=== PATIENT | female | born 1945 | race Caucasian/White ===

== ENCOUNTER 2018-04-21 12:40 | Inpatient (IN) | payer OTHER, SELFPAY ==
[2018-04-21] MEDS ORDERED: ONDANSETRON 4 MG/2 ML VIAL ONE (13:58)
[2018-04-21] MEDS ORDERED: MORPHINE 4 MG/ML SYR ONE (13:58)
[2018-04-21] MEDS ORDERED: NA CHLORIDE 0.9% 1,000 ML ONE ×2 (13:58→16:17)
--- NOTE | 2018-04-21 14:07 | RAD REPORT ---
EXAM DESCRIPTION: CT - Abdomen Pelvis Wo Contrast - 04/21/2018 1:33 pm CLINICAL HISTORY: Abdominal pain, patient provided history of liver an uterine cancer COMPARISON: None. TECHNIQUE: Axial [address] imaging of the abdomen and pelvis was performed without IV contrast. No IV contrast was given because of allergy, abnormal renal function, patient refusal or physician re quest. No oral contrast administered. All CT scans are performed using dose optimization technique as appropriate and may include automated exposure control or mA/KV adjustment according to patient size. FINDINGS: No suspicious findings in the lung bases. No pericardial thickening or effusion. In the midline and right side upper abdomen there is an 8 x 7 x 7 centimeter lobulated soft tissue ma ss. Superior margin abuts the left lobe of the liver. In the midportion the mass displaces the pancre as anteriorly. Posterior margin of the mass abuts the aorta and IVC. Surgical clips are seen along th e superior margin of the mass. Within the liver parenchyma no clearly defined mass on noncontrast kurt ging. Pneumobilia is present. No gallbladder is identifiable. No focal splenic abnormality. The head and adjacent body of the pancreas are indistinguishable from the mass due to the isodensity of the 2 structures. No hydronephrosis or suspicious renal mass. Patient has a large 7 centimeter lower pole right renal c yst. Mostly contracted urinary bladder shows no suspicious finding. Uterus is absent. Ovaries are abs ent or atrophic. No adnexal mass. No significant adrenal finding. Isodense renal masses and pyeloneph ritis cannot be excluded in the absence of IV contrast. No acute gastric finding. Stomach assessment is limited in the absence of oral and IV contrast. No di lated large or small bowel loops. There is a large stool volume throughout the colon. A primary or ac tive colon process not suspected. No free air, free fluid or inflammatory stranding. No omental thickening. No hernia identified. Miryam ent has small periaortic/ pericaval lymph nodes in the upper abdomen. Disc and bony degenerative changes are present. IMPRESSION: No bowel obstruction, free air or surgically emergent finding. There is a large 8 centimeter solid mass of the midline and right upper abdomen with adjacent lymphad enopathy. Available history indicates liver cancer and uterine cancer. No prior imaging available to determine if this mass is stable, enlarging or improving. Large stool volume in the colon. No acute GI process. Large 7 centimeter lower pole right renal cyst. Assessment is limited in the absence of oral and IV contrast. Full assessment is limited is the absence of IV contrast.
--- NOTE | 2018-04-21 14:09 | RAD REPORT ---
EXAM DESCRIPTION: RAD - Chest Single View - 04/21/2018 1:35 pm CLINICAL HISTORY: Abdominal pain COMPARISON: None. TECHNIQUE: AP portable chest image was obtained 1329 hours . FINDINGS: Lungs are clear. Heart and vasculature are normal. No measurable pleural effusion and no p neumothorax. No acute bony abnormality seen. No acute aortic findings suspected. IMPRESSION: No acute cardiopulmonary process.
[2018-04-21 14:29] LABS: Absolute Lymphocytes (CBC) 0.8 K/uL (0.7-4.9); Absolute Monocytes 1.1 K/uL (0.1-1.3); Absolute Neutrophil 13.3 K/uL (1.8-8.0); Basophils % 0.1 % (0-1.3); Hematocrit 48.3 % (36.0-45.0); Lymphocytes % 5.2 % (15.3-44.8); MPV 8.2 fL (7.6-11.3); Monocytes % 7.1 % (3.3-12.3); RBC Red Blood Cell Count 6.26 M/uL (3.86-4.86)
[2018-04-21 14:30] LABS: Protime INR 1.08
[2018-04-21 14:43] LABS: Albumin 4.3 g/dL (3.4-5.0); Bilirubin Direct 0.2 mg/dL (0-0.2); Bilirubin Total 0.8 mg/dL (0.2-1.0); Potassium 3.7 mmol/L (3.5-5.1); Protein, Total 8.5 g/dL (6.4-8.2); Troponin (Emerg Dept Use Only) 0.14 ng/mL (0.0-0.045)
[2018-04-21] MEDS ORDERED: ASPIRIN 81 MG CHEWABLE TABLET ONE (15:12)
[2018-04-21 15:21] LABS: Anisocytosis 1+; Blood Morphology Comment NOTED (NOT SEEN); Platelet Estimate ADEQ; Urine White Blood Cell Casts OK
--- NOTE | 2018-04-21 15:35 | RAD REPORT ---
EXAM DESCRIPTION: CT - Chest For Pe Angio - 04/21/2018 3:22 pm CLINICAL HISTORY: Chest pain, shortness of breath, abnormal cardiac enzymes COMPARISON: None. TECHNIQUE: Dynamically enhanced 3 mm thick images of the chest were obtained during administration o f approximately 150mL Isovue 370 IV contrast. Coronal and oblique MIP reconstruction images were gene rated and reviewed. Exam utilizes a protocol to evaluate the pulmonary arterial tree. All CT scans are performed using dose optimization technique as appropriate and may include automated exposure control or mA/KV adjustment according to patient size. FINDINGS: No pulmonary emboli are identified. The aorta as imaged shows no acute or suspicious finding. Trace amount of pericardial effusion seen. No infiltrate or mass in the lung parenchyma. No pleural effusion or pleural thickening. No mediastinal or hilar suspicious masses. No chest wall masses or abnormal axillary lymphadenopathy. IMPRESSION: No pulmonary emboli identified. No other significant or suspicious findings.
[2018-04-21] MEDS ORDERED: LABETALOL 20 MG/4ML SYRINGE IV ONE (15:44)
--- NOTE | 2018-04-21 15:57 | ER ---
Nurse's Notes [facility] Name: Heidy Shelton Age: 73 yrs Sex: Female : 1945 Arrival Date: 04/21/2018 Time: 12:43 Bed 19 Private MD: None, None Diagnosis: Hypertensive heart disease;Non-ST elevation (NSTEMI) myocardial infarction Presentation: 04/21 12:45 Presenting complaint: Patient states: i started having stomach pain yesterday, +n, tw2 vomited all night. Transition of care: patient was not received from another setting of care. Onset of symptoms was April 21, 2018. Risk Assessment: Do you want to hurt yourself or someone else? Patient reports no desire to harm self or others. Initial Sepsis Screen: Does the patient meet any 2 criteria? No. Patient's initial sepsis screen is negative. Does the patient have a suspected source of infection? No. Patient's initial sepsis screen is negative. Care prior to arrival: None. 12:45 Method Of Arrival: Wheelchair tw2 12:45 Acuity: ISABELLA 3 tw2 Historical: - Allergies: 12:48 No Known Allergies; tw2 - Home Meds: 12:48 chemo - 1 mo ago [Active]; tw2 - PMHx: 12:48 Cancer; cancer of liver, uterine, and cyst; tw2 - Immunization history:: Adult Immunizations. - Social history:: Smoking status: Patient/guardian denies using alcohol, street drugs, The patient lives with family. - Ebola Screening: : Patient denies travel to an Ebola-affected area in the 21 days before illness onset. - Family history:: not pertinent. Screenin:00 Abuse screen: Denies threats or abuse. Denies injuries from another. Nutritional bp screening: No deficits noted. Tuberculosis screening: No symptoms or risk factors identified. Fall Risk None identified. Assessment: 12:45 General: Appears distressed, uncomfortable, slender, Behavior is calm, cooperative, bp appropriate for age. Pain: Complains of pain in abdomen. Neuro: Level of Consciousness is awake, alert, obeys commands, lethargic, Oriented to person, place, time, situation, Appropriate for age. Cardiovascular: No deficits noted. Respiratory: Airway is patent Respiratory effort is even, unlabored, Respiratory pattern is regular, symmetrical. GI: Reports lower abdominal pain. : No signs and/or symptoms were reported regarding the genitourinary system. EENT: No deficits noted. Derm: No signs and/or symptoms reported regarding the dermatologic system. Musculoskeletal: Circulation, motion, and sensation intact. Range of motion: intact in all extremities. 14:04 Reassessment: ALL CURRENT ORDERS COMPLETED, RESULTS PENDING. bp Vital Signs: 12:45 BP 153 / 114; Pulse 118; Resp 19; Temp 97.2(TE); Pulse Ox 97% on R/A; Weight 56.7 kg tw2 (R); Pain 10/10; 14:03 BP 216 / 114; Pulse 100; Resp 20; Pulse Ox 94% ; bp 14:41 BP 221 / 82; Pulse 100; Resp 19; Pulse Ox 96% on R/A; ca1 15:00 BP 229 / 81; Pulse 99; Resp 22; Pulse Ox 95% ; bp 16:36 BP 183 / 79; Pulse 76; Resp 21; Temp 98.2(O); Pulse Ox 98% on R/A; mh5 ED Course: 12:43 Patient arrived in ED. mr 12:43 None, None is Private Physician. mr 12:45 Triage completed. tw2 12:48 Arm band placed on. tw2 12:50 Kamran Gonzalez, TYLER is Primary Nurse. bp 13:05 Maki Awan MD is Attending Physician. ma2 13:32 CT completed. Patient tolerated procedure well. Patient moved to CT via stretcher. Patient moved back from CT. 13:34 CT Abd/Pelvis - Without Cont In Process Unspecified. EDMS 13:34 X-ray completed. Portable x-ray completed in exam room. Patient tolerated procedure mh1 well. 13:36 XRAY Chest (1 view) In Process Unspecified. EDMS 13:59 Inserted saline lock: 20 gauge in right antecubital area, using aseptic technique. bp Blood collected. 14:00 Patient has correct armband on for positive identification. Placed in gown. Bed in low bp position. Call light in reach. Side rails up X2. Adult w/ patient. 15:[address] via stretcher. nj 15:22 CT completed. Patient tolerated procedure well. Patient moved back from CT. nj 15:23 CT Chest For PE Angio In Process Unspecified. EDMS 15:56 Xochilt Moreau MD is Hospitalizing Provider. ma2 17:14 No provider procedures requiring assistance completed. Patient admitted, IV remains in bp place. Administered Medications: 14:00 Drug: NS 0.9% 1000 ml Route: IV; Rate: 1 bolus; Site: right antecubital; bp 15:00 Follow up: IV Status: Completed infusion bp 14:00 Drug: morphine 4 mg Route: IVP; Site: right antecubital; bp 16:04 Follow up: Response: Pain is decreased bp 14:01 Drug: Zofran 4 mg Route: IVP; Site: right antecubital; bp 15:00 Follow up: Response: Nausea is decreased bp 15:03 Drug: Aspirin Chewable Tablet 324 mg Route: PO; ca1 16:05 Follow up: Response: No adverse reaction bp 15:38 Drug: Labetalol 10 mg Route: IVP; Site: right antecubital; bp 16:05 Follow up: Response: No adverse reaction bp 16:00 Drug: Lovenox 80 mg Route: Sub-Q; Site: right lower abdomen; ca1 17:28 Follow up: Response: No adverse reaction bp 16:07 Drug: NS 0.9% 1000 ml Route: IV; Rate: 1 bolus; Site: right antecubital; ca1 17:28 Follow up: IV Status: Completed infusion bp Outcome: 15:57 Decision to Hospitalize by Provider. ma2 17:15 Condition: stable bp 17:15 Instructed on the need for admit. 17:28 Admitted to Tele accompanied by tech, family with patient, via wheelchair, room 406, bp with oxygen, with chart, Report called to SELMA 18:04 Patient left the ED. bp Signatures: Dispatcher [employer] EDCO LandQuita mr CarterFarzaneh mh1 Jazmin Mayo Tara, RN RN 2 Lobo Menon Maria 5 Kamran Gonzalez RN RN bp Mkai Awan MD MD ma2 Heidy Ellis RN RN ca1
--- NOTE | 2018-04-21 15:58 | EDPHYS ---
Physician Documentation [facility] Name: Heidy Shelton Age: 73 yrs Sex: Female : 1945 Arrival Date: 04/21/2018 Time: 12:43 Bed 19 Private MD: None, None ED Physician Maki Awan HPI: 04/21 13:18 This 73 yrs old Female presents to ER via Wheelchair with complaints of High ma2 Blood Pressure. 13:18 Onset: The symptoms/episode began/occurred gradually, 3 day(s) ago. Associated signs ma2 and symptoms: Pertinent positives: nausea, vomiting, abd pain, Pertinent negatives: dyspnea, lightheadedness, visual changes. The patient has experienced similar episodes in the past. here with dehydration no po intake and vomiting hx of liver ca w mets does not get any treatment or medicines . Historical: - Allergies: 12:48 No Known Allergies; tw2 - Home Meds: 12:48 chemo - 1 mo ago [Active]; tw2 - PMHx: 12:48 Cancer; cancer of liver, uterine, and cyst; tw2 - Immunization history:: Adult Immunizations. - Social history:: Smoking status: Patient/guardian denies using alcohol, street drugs, The patient lives with family. - Ebola Screening: : Patient denies travel to an Ebola-affected area in the 21 days before illness onset. - Family history:: not pertinent. ROS: 13:18 Constitutional: Negative for fever, chills, and weight loss. ma2 13:18 Abdomen/GI: Positive for abdominal pain, nausea, vomiting, Negative for constipation, abdominal distension, anorexia, rectal pain, flatulence. 13:18 All other systems are negative. Exam: 13:18 Constitutional: This is a well developed, well nourished patient who is awake, alert, ma2 and in no acute distress. 13:18 ENT: Nares patent. No nasal discharge, no septal abnormalities noted. Tympanic membranes are normal and external auditory canals are clear. Oropharynx with no redness, swelling, or masses, exudates, or evidence of obstruction, uvula midline. Mucous membranes moist. Neck: Trachea midline, no thyromegaly or masses palpated, and no cervical lymphadenopathy. Supple, full range of motion without nuchal rigidity, or vertebral point tenderness. No Meningismus. Chest/axilla: Normal chest wall appearance and motion. Nontender with no deformity. No lesions are appreciated. Cardiovascular: Regular rate and rhythm with a normal S1 and S2. No gallops, murmurs, or rubs. Normal PMI, no JVD. No pulse deficits. Respiratory: Lungs have equal breath sounds bilaterally, clear to auscultation and percussion. No rales, rhonchi or wheezes noted. No increased work of breathing, no retractions or nasal flaring. MS/ Extremity: Pulses equal, no cyanosis. Neurovascular intact. Full, normal range of motion. Neuro: Awake and alert, GCS 15, oriented to person, place, time, and situation. Cranial nerves II-XII grossly intact. Motor strength 5/5 in all extremities. Sensory grossly intact. Cerebellar exam normal. Normal gait. 13:18 Abdomen/GI: Inspection: abdomen appears normal, Palpation: moderate abdominal tenderness, in all quadrants. Vital Signs: 12:45 BP 153 / 114; Pulse 118; Resp 19; Temp 97.2(TE); Pulse Ox 97% on R/A; Weight 56.7 kg tw2 (R); Pain 10/10; 14:03 BP 216 / 114; Pulse 100; Resp 20; Pulse Ox 94% ; bp 14:41 BP 221 / 82; Pulse 100; Resp 19; Pulse Ox 96% on R/A; ca1 15:00 BP 229 / 81; Pulse 99; Resp 22; Pulse Ox 95% ; bp 16:36 BP 183 / 79; Pulse 76; Resp 21; Temp 98.2(O); Pulse Ox 98% on R/A; mh5 MDM: 13:05 Patient medically screened. ms2 13:18 Differential diagnosis: dehydration, vomiting decrease po intake. ma2 15:48 Data reviewed: vital signs, nurses notes. Counseling: I had a detailed discussion with ma2 the patient and/or guardian regarding: the historical points, exam findings, and any diagnostic results supporting the discharge/admit diagnosis, the presence of at least one elevated blood pressure reading (>120/80) during this emergency department visit, the need for further work-up and treatment in the hospital. ED course: symptoms improved however has elevated BP with elevated troponin no symptoms at this time will admit for hypertensive emergency accepted by dr. Moreau . 04/21 13:18 Order name: Basic Metabolic Panel; Complete Time: 14:54 04/21 13:18 Order name: CBC with Diff; Complete Time: 15:44 04/21 13:18 Order name: Creatinine for Radiology; Complete Time: 14:41 04/21 13:18 Order name: Hepatic Function; Complete Time: 14:54 04/21 13:18 Order name: Lipase; Complete Time: 14:54 04/21 13:18 Order name: Magnesium; Complete Time: 14:54 04/21 13:18 Order name: NT PRO-BNP; Complete Time: 14:54 04/21 13:18 Order name: PT-INR; Complete Time: 14:54 04/21 13:18 Order name: Troponin (emerg Dept Use Only); Complete Time: 14:54 04/21 13:18 Order name: XRAY Chest (1 view); Complete Time: 14:41 04/21 13:18 Order name: CT Abd/Pelvis - Without Cont; Complete Time: 14:41 04/21 14:58 Order name: CT Chest For PE Angio; Complete Time: 15:44 04/21 15:21 Order name: CBC Smear Scan; Complete Time: 15:44 [facility] 04/21 13:18 Order name: IV Saline Lock; Complete Time: 14:01 04/21 13:18 Order name: Labs collected and sent; Complete Time: 14:01 04/21 13:18 Order name: EKG; Complete Time: 13:19 04/21 13:18 Order name: Cardiac monitoring; Complete Time: 13:31 04/21 13:18 Order name: EKG - Nurse/Tech; Complete Time: 13:04/21 13:18 Order name: O2 Per Protocol; Complete Time: 13:04/21 13:18 Order name: O2 Sat Monitoring; Complete Time: 13: Administered Medications: 14:00 Drug: NS 0.9% 1000 ml Route: IV; Rate: 1 bolus; Site: right antecubital; bp 15:00 Follow up: IV Status: Completed infusion bp 14:00 Drug: morphine 4 mg Route: IVP; Site: right antecubital; bp 16:04 Follow up: Response: Pain is decreased bp 14:01 Drug: Zofran 4 mg Route: IVP; Site: right antecubital; bp 15:00 Follow up: Response: Nausea is decreased bp 15:03 Drug: Aspirin Chewable Tablet 324 mg Route: PO; ca1 16:05 Follow up: Response: No adverse reaction bp 15:38 Drug: Labetalol 10 mg Route: IVP; Site: right antecubital; bp 16:05 Follow up: Response: No adverse reaction bp 16:00 Drug: Lovenox 80 mg Route: Sub-Q; Site: right lower abdomen; ca1 17:28 Follow up: Response: No adverse reaction bp 16:07 Drug: NS 0.9% 1000 ml Route: IV; Rate: 1 bolus; Site: right antecubital; ca1 17:28 Follow up: IV Status: Completed infusion bp Disposition: 04/21/18 15:57 Hospitalization ordered by Xochilt Moreau for Inpatient Admission. Preliminary diagnosis are Hypertensive heart disease, Non-ST elevation (NSTEMI) myocardial infarction. - Bed requested for Telemetry/MedSurg (Inpatient). - Status is Inpatient Admission. bp - Condition is Stable. - Problem is new. - Symptoms are unchanged. UTI on Admission? No Signatures: Dispatcher [employer] EDMS Angela Silva Tara, RN RN tw2 Kamran Gonzalez RN RN bp Maki Awan MD MD ma2 Heidy Ellis RN RN ca1 Corrections: (The following items were deleted from the chart) 17:02 15:57 Hospitalization Ordered by Xochilt Moreau MD for Inpatient Admission. Preliminary bd diagnosis is Hypertensive heart disease; Non-ST elevation (NSTEMI) myocardial infarction. Bed requested for Telemetry/MedSurg (Inpatient). Status is Inpatient Admission. Condition is Stable. Problem is new. Symptoms are unchanged. UTI on Admission? No. ma2 18:04 17:02 04/21/2018 15:57 Hospitalization Ordered by Xochilt Moreau MD for Inpatient bp Admission. Preliminary diagnosis is Hypertensive heart disease; Non-ST elevation (NSTEMI) myocardial infarction. Bed requested for Telemetry/MedSurg (Inpatient). Status is Inpatient Admission. Condition is Stable. Problem is new. Symptoms are unchanged. UTI on Admission? No. bd
[2018-04-21] MEDS ORDERED: ENOXAPARIN 80 MG/0.8 ML SQ ONE (16:18)
--- NOTE | 2018-04-21 17:07 | EKG ---
Test Date: 2018-04-21 Test Time: 13:06:08 Burrer Hand: [place] MEASUREMENT RESULTS: Intervals: Rate: 113 DC: 186 QRSD: 82 QT: 328 QTc: 449 [place]: P: 74 DC: 186 QRS: 51 T: 81 INTERPRETIVE STATEMENTS: Sinus tachycardia Right atrial enlargement Nonspecific ST abnormality Abnormal ECG No previous ECG available for comparison Electronically Signed On 04-21-18 17:06:46 [employer]ANT AND MAINTENANCE TECHNICIAN by Brock Cedeno
[2018-04-21] MEDS ORDERED: ACETAMINOPHEN 500 MG TAB PO PRN (18:08)
[2018-04-21] MEDS ORDERED: PNEUMOCOCCAL VACCINE 0.5 ML IMVAC ONE (20:00)
[2018-04-21] MEDS ORDERED: INFLUENZA VACCINE (for 3y+) 0.5 ML DOSE IMVAC ONE (20:00)
[2018-04-21] MEDS ORDERED: AMLODIPINE 5 MG TAB PO ONE (20:17)
[2018-04-21] MEDS ORDERED: METOPROLOL TAR 50 MG TAB PO ONE (20:17)
[2018-04-21] MEDS: ONDANSETRON 4 MG/2 ML VIAL IV PRN (20:43)
[2018-04-21] MEDS: NA CHLORIDE 0.9% 1,000 ML IV SCH (20:49)
[2018-04-21] MEDS: HYDRALAZINE HCL 20 MG/ML VIAL IV PRN (23:06)
[2018-04-22 04:15] LABS: Absolute Lymphocytes (CBC) 1.5 K/uL (0.7-4.9); Absolute Monocytes 1.4 K/uL (0.1-1.3); Basophils % 0.2 % (0-1.3); Hematocrit 45.9 % (36.0-45.0); Lymphocytes % 8.5 % (15.3-44.8); MPV 8.1 fL (7.6-11.3); Monocytes % 7.9 % (3.3-12.3); RBC Red Blood Cell Count 5.99 M/uL (3.86-4.86)
[2018-04-22 04:39] LABS: Albumin 3.8 g/dL (3.4-5.0); Bilirubin Total 0.6 mg/dL (0.2-1.0); Potassium 3.5 mmol/L (3.5-5.1); Protein, Total 7.5 g/dL (6.4-8.2)
[2018-04-22 04:45] LABS: Urine Appearance CLEAR; Urine Bilirubin NEGATIVE (NEG); Urine Blood TRACE (NEG); Urine Color YELLOW; Urine Glucose TRACE (NEG); Urine Protein 3+ (NEG); Urine Specific Gravity >=1.030 (1.005-1.030); Urine pH 5.5 (5.0-7.0)
[2018-04-22 04:46] LABS: Urine Microscopic Reflex ORDER UMIC
[2018-04-22] MEDS: MORPHINE 4 MG/ML SYR IV PRN ×3 (05:13→15:21)
[2018-04-22 05:34] LABS: Urine Bacteria <20 /HPF (<20); Urine Culture Reflex Order NOT NEEDED; Urine RBC <5 /HPF (NONE SEEN)
[2018-04-22] MEDS: METOPROLOL TAR 25 MG TAB PO SCH ×2 (05:59→16:47)
[2018-04-22] MEDS ORDERED: POTASSIUM CL SA 10 MEQ TAB PO ONE (08:00)
[2018-04-22] MEDS: HYDRALAZINE HCL 20 MG/ML VIAL IV PRN ×2 (09:09→21:09)
[2018-04-22] MEDS: AMLODIPINE 10 MG TAB PO SCH (09:10)
[2018-04-22] MEDS: NA CHLORIDE 0.9% 1,000 ML IV SCH ×2 (09:11→23:40)
--- NOTE | 2018-04-22 09:23 | P.HP ---
Certification for Inpatient Patient admitted to: Inpatient With expected LOS: >2 Midnights Patient will require the following post-hospital care: None Practitioner: I am a practitioner with admitting privileges, knowledge of patient current condition, hospital course, and medical plan of care. Services: Services provided to patient in accordance with Admission requirements found in Title 42 Section 412.3 of the Code of Federal Regulations Patient History Date of Service: 04/21/18 Reason for admission: Hypertensive emergency History of Present Illness: Patient is a 73-year-old female who was admitted to the hospital with chest pain.: Patient has been having abdominal pain as well. Patient had intractable nausea and vomiting. Patient is blood pressure is also been out of control. Patient came to the hospital for further evaluation. In the ER blood pressure was 200/100. Patient's troponin was mildly elevated. Patient was diagnosed with abdominal mass which is a malignancy. The patient has metastatic disease. Patient was admitted to the hospital for further evaluation. 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 -: hysterectomy -: tumor removal- hidden in the bile duct about 6 yrs ago - Family History Father Family History: Reviewed- Non-Contributory - Social History Smoking Status: Never smoker Alcohol use: No CD- Drugs: No Caffeine use: Yes Place of Residence: Home Review of Systems 10-point ROS is otherwise unremarkable Physical Examination - Vital Signs Temperature: 97.3 F Blood Pressure: 194/97 Pulse: 80 Respirations: 16 Pulse Ox (%): 96 - Physical Exam General: Alert, In no apparent distress, Oriented x3 HEENT: Atraumatic, PERRLA, Mucous membr. moist/pink, EOMI, Sclerae nonicteric Neck: Supple, 2+ carotid pulse no bruit, No LAD, Without JVD or thyroid abnormality Respiratory: Clear to auscultation bilaterally, Normal air movement Cardiovascular: Regular rate/rhythm, Normal S1 S2, No murmurs Gastrointestinal: Normal bowel sounds, No tenderness Musculoskeletal: No tenderness Integumentary: No rashes Neurological: Normal gait, Normal speech, Normal strength at 5/5 x4 extr, Normal tone, Normal affect Lymphatics: No axilla or inguinal lymphadenopathy - Studies Laboratory Data (last 24 hrs) 04/21/18 14:10: PT 12.7 H, INR 1.08 04/21/18 14:10: Creatinine 1.28 04/21/18 14:10: WBC 15.2 H, Hgb 16.5 H, Hct 48.3 H, Plt Count 343 04/21/18 14:10: Sodium 130 L, Potassium 3.7, BUN 20 H, Creatinine 1.30, Glucose 258 H, Magnesium 2.0, Total Bilirubin 0.8, AST 13 L, ALT 18, Alkaline Phosphatase 132 H, Lipase 95 Assessment & Plan - Problems (Diagnosis) (1) Abdominal mass Current Visit: Yes Status: Acute (2) Metastatic disease Current Visit: Yes Status: Acute (3) Hypertensive emergency Current Visit: Yes Status: Acute (4) Elevated troponin Current Visit: Yes Status: Acute - Plan Plan: 1. strict blood pressure control 2. monitor troponins 3. Conservative measures 4. Gentle hydration 5. Discuss with family regarding hospice care 6. GI and DVT prophylaxis Discharge Plan: Home Plan to discharge in: 48 Hours - Advance Directives Does patient have a Living Will: No Does patient have a Durable POA for Healthcare: No - Code Status/Comfort Care Code Status Assessed: Yes Code Status: Full Code Critical Care: No Time Spent Managing PTS Care (In Minutes): 45
[2018-04-22] MEDS: ONDANSETRON 4 MG/2 ML VIAL IV PRN ×2 (09:59→22:25)
[2018-04-22 12:00] LABS: CKMB Creatine Kinase MB < 1.0 ng/mL (0.3-3.6); Creatine Phosphokinase 26 U/L (26-192)
[2018-04-22] MEDS: HYDROCODONE/APAP 5/325 MG TAB PO PRN ×2 (13:11→21:09)
--- NOTE | 2018-04-22 16:17 | P.PN ---
Subjective Date of Service: 04/22/18 Chief Complaint: Hypertensive emergency Patient seen and examined at bedside. Friends at bedside. Chart reviewed and case discussed with nursing staff. Physical Examination - Vital Signs Temperature: 98.8 F Blood Pressure: 157/82 Pulse: 96 Respirations: 18 Pulse Ox (%): 96 - Physical Exam General: Cachectic, Moderate distress, Other (Groggy; elderly, ill-appearing) HEENT: Atraumatic, PERRLA, EOMI Neck: Supple, JVD not distended Respiratory: Clear to auscultation bilaterally, Normal air movement Cardiovascular: Regular rate/rhythm, Normal S1 S2 Gastrointestinal: Normal bowel sounds, Tenderness Musculoskeletal: No tenderness Integumentary: No rashes Neurological: Normal speech, Normal tone, Normal affect Lymphatics: No axilla or inguinal lymphadenopathy Assessment And Plan - Plan - Problems (Diagnosis) (1) Abdominal mass (2) Metastatic disease (3) Hypertensive emergency (4) Elevated troponin 1. strict blood pressure control 2. monitor troponins 3. Conservative measures 4. Gentle hydration 5. Discuss with family regarding hospice care. Attempts to call son, unable to reach. Will try again 6. GI and DVT prophylaxis
[2018-04-22] MEDS: ENOXAPARIN 40 MG/0.4 ML SQ SCH (16:43)
[2018-04-23] MEDS: HYDROCODONE/APAP 5/325 MG TAB PO PRN (01:32)
[2018-04-23] MEDS: MORPHINE 4 MG/ML SYR IV PRN (04:54)
[2018-04-23] MEDS: METOPROLOL TAR 25 MG TAB PO SCH ×2 (06:00→17:34)
[2018-04-23] MEDS: TRAMADOL HCL 50 MG TAB PO PRN ×2 (08:33→15:34)
[2018-04-23] MEDS: ONDANSETRON 4 MG/2 ML VIAL IV PRN ×2 (08:33→15:44)
[2018-04-23] MEDS: AMLODIPINE 10 MG TAB PO SCH (08:34)
[2018-04-23] MEDS: HYDRALAZINE HCL 20 MG/ML VIAL IV PRN ×2 (08:34→15:43)
[2018-04-23] MEDS: NA CHLORIDE 0.9% 1,000 ML IV SCH (15:35)
[2018-04-23] MEDS ORDERED: POTASSIUM CL SA 10 MEQ TAB PO SCH (15:56)
--- NOTE | 2018-04-23 16:06 | P.PN ---
Subjective Date of Service: 04/23/18 Chief Complaint: Hypertensive emergency Patient seen and examined at bedside. Friends at bedside. Chart reviewed and case discussed with nursing staff. Patient very sleepy, unable to really discuss. Arousable but not very coherent. She did receive morphine and Sixes recent HPI: patient with a history of uterine cancer requiring hysterectomy over 8 years ago and no chemo required at that time. 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 Son states that there was a rare type and she did not require chemo at that time either. Approximately 10 months ago she was diagnosed with another type of cancer, son is not sure what type of cancer but it is in the GI tract somewhere in the abdomen. At that time, she was told that it is a very slow-growing tumor though unoperable. The son is not sure why it was not operable. There was a procedure playing out to possibly showing the tumor with the physicians that she is following up in [place]. She was started on injectable chemo once a month then was transitioned to oral chemo. He but according to the son, patient moved near [place], was unable to get her chemo prescription filled and for the past 1-2 months has not been getting any chemo medications. There was a repeat CT done in December 2017, which showed that there is no evidence of any growth of the tumor from prior. 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 Review of Systems 10-point ROS is otherwise unremarkable Physical Examination - Vital Signs Temperature: 98.3 F Blood Pressure: 164/76 Pulse: 108 Respirations: 20 Pulse Ox (%): 95 - Physical Exam General: Moderate distress, Other (groggy/sleepy; elderly and ill-appearing) Respiratory: Clear to auscultation bilaterally Cardiovascular: No edema, Regular rate/rhythm Gastrointestinal: Tenderness Musculoskeletal: No clubbing Assessment And Plan - Plan - Problems (Diagnosis) (1) Abdominal mass (2) Metastatic disease (3) Hypertensive emergency (4) Elevated troponin 1. strict blood pressure control 2. Pain management - tramadol. Discontinue morphine and [place] at this time 3. Conservative measures 4. Gentle hydration 5. Discuss with family regarding hospice care. Son is not sure of what hospice care is. He is located at [facility] and will not be able to travel down here. We will discuss briefly via telephone. 6. 7. Per son, patient does not have a medical power of health spa manager and is unsure of the code status at this time. He will discuss with his and let us know. Patient is not really able to tell us her wishes at this time. GI and DVT prophylaxis Time Spent Managing PTS Care (In Minutes): 45
[2018-04-23] MEDS: ENOXAPARIN 40 MG/0.4 ML SQ SCH (16:42)
[2018-04-23] MEDS ORDERED: KETOROLAC 30 MG/ML INJ IV SCH (18:30)
[2018-04-24] MEDS: NA CHLORIDE 0.9% 1,000 ML IV SCH ×2 (02:53→15:40)
[2018-04-24] MEDS: HYDRALAZINE HCL 20 MG/ML VIAL IV PRN (02:54)
[2018-04-24] MEDS: METOPROLOL TAR 25 MG TAB PO SCH ×2 (05:32→18:00)
[2018-04-24] MEDS: AMLODIPINE 10 MG TAB PO SCH (08:28)
[2018-04-24] MEDS ORDERED: KETOROLAC 30 MG/ML INJ IV ONE (09:55)
--- NOTE | 2018-04-24 11:19 | P.PN ---
Subjective Date of Service: 04/24/18 Chief Complaint: Hypertensive emergency Patient seen and examined at bedside. Friends at bedside. Chart reviewed and case discussed with nursing staff. Patient more awake this morning. Does not look like she is in any acute distress but complaining of pain that is not improved since admission. HPI: patient with a history of uterine cancer requiring hysterectomy over 8 years ago and no chemo required at that time. 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 Son states that there was a rare type and she did not require chemo at that time either. Approximately 10 months ago she was diagnosed with another type of cancer, son is not sure what type of cancer but it is in the GI tract somewhere in the abdomen. At that time, she was told that it is a very slow-growing tumor though unoperable. The son is not sure why it was not operable. There was a procedure playing out to possibly showing the tumor with the physicians that she is following up in [place]. She was started on injectable chemo once a month then was transitioned to oral chemo. He but according to the son, patient moved near [place], was unable to get her chemo prescription filled and for the past 1-2 months has not been getting any chemo medications. There was a repeat CT done in December 2017, which showed that there is no evidence of any growth of the tumor from prior. 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 Review of Systems 10-point ROS is otherwise unremarkable Physical Examination - Vital Signs Temperature: 97.9 F Blood Pressure: 155/78 Pulse: 80 Respirations: 17 Pulse Ox (%): 94 - Physical Exam General: Alert, In no apparent distress, Oriented x3 HEENT: Atraumatic, PERRLA, EOMI Neck: Supple, JVD not distended Respiratory: Clear to auscultation bilaterally, Normal air movement Cardiovascular: Regular rate/rhythm, Normal S1 S2 Gastrointestinal: Normal bowel sounds, Tenderness Musculoskeletal: No tenderness Integumentary: No rashes Neurological: Normal speech, Normal tone, Normal affect Lymphatics: No axilla or inguinal lymphadenopathy Assessment And Plan - Plan - Problems (Diagnosis) (1) Abdominal mass (2) Metastatic disease (3) Hypertensive emergency (4) Elevated troponin 1. strict blood pressure control 2. Pain management - Patient on tramadol, [place] and morphine. None of this has been helping her pain, per patient. She remains to be in no distress but continues to complain of pain. Morphine and [place] seems to make the patient very confused and sleepy. Trial of IV Toradol to see if this will help. 3. Gentle hydration 4. Discuss with family regarding hospice care. Discussed extensively with sister and mother at bedside yesterday. Family is not sure of how they want to proceed. They were unable to provide details of prior procedure/cancer. There on short of previously had cancer in liver, metastasis from elsewhere? There very indecisive and are unsure of what to do. Per sister, the son lives in [facility] and is supposed be leaving out of the country. Discussed with family that they will need to make a plan for moving forward as patient's pain control has been very difficult to manage. It seems that they are under the impression that the patient will return back to baseline with holistic medicine. Sister stated that she will speak to patient's son to see if he can come down here for further discussion. Will continue to follow up with family. 5. Per son, patient does not have a medical power of deputy commonwealth's attorney and is unsure of the code status at this time. He will discuss with his and let us know. Patient is not really able to tell us her wishes at this time. GI and DVT prophylaxis
[2018-04-24] MEDS: ENOXAPARIN 40 MG/0.4 ML SQ SCH (17:00)
[2018-04-24] MEDS: FENTANYL 25 MCG/PATCH TD SCH (21:09)
[2018-04-25] MEDS: TRAMADOL HCL 50 MG TAB PO PRN ×2 (00:56→11:42)
[2018-04-25] MEDS: HYDRALAZINE HCL 20 MG/ML VIAL IV PRN (00:56)
[2018-04-25] MEDS: MORPHINE 4 MG/ML SYR IV PRN ×2 (04:31→14:58)
[2018-04-25] MEDS: NA CHLORIDE 0.9% 1,000 ML IV SCH ×2 (04:31→17:32)
[2018-04-25] MEDS: METOPROLOL TAR 25 MG TAB PO SCH ×2 (05:09→17:32)
[2018-04-25] MEDS: ONDANSETRON 4 MG/2 ML VIAL IV PRN ×2 (05:21→14:58)
[2018-04-25] MEDS: hydroCHLOROthiazide 12.5 MG CAP PO SCH (08:41)
[2018-04-25] MEDS: AMLODIPINE 10 MG TAB PO SCH (08:41)
[2018-04-25] MEDS: ENOXAPARIN 40 MG/0.4 ML SQ SCH (17:32)
--- NOTE | 2018-04-25 17:56 | P.PN ---
Subjective Date of Service: 04/25/18 Chief Complaint: Hypertensive emergency Subjective: Improving Patient seen and examined at bedside. Friends at bedside. Chart reviewed and case discussed with nursing staff. Patient more awake this morning. Reports that she had a good night, pain is a little better than yesterday. HPI: patient with a history of uterine cancer requiring hysterectomy over 8 years ago and no chemo required at that time. 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 Son states that there was a rare type and she did not require chemo at that time either. Approximately 10 months ago she was diagnosed with another type of cancer, son is not sure what type of cancer but it is in the GI tract somewhere in the abdomen. At that time, she was told that it is a very slow-growing tumor though unoperable. The son is not sure why it was not operable. There was a procedure playing out to possibly showing the tumor with the physicians that she is following up in [place]. She was started on injectable chemo once a month then was transitioned to oral chemo. He but according to the son, patient moved near [place], was unable to get her chemo prescription filled and for the past 1-2 months has not been getting any chemo medications. There was a repeat CT done in December 2017, which showed that there is no evidence of any growth of the tumor from prior. 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 Review of Systems 10-point ROS is otherwise unremarkable Physical Examination - Vital Signs Temperature: 97.5 F Blood Pressure: 138/72 Pulse: 79 Respirations: 16 Pulse Ox (%): 95 - Physical Exam General: Alert, In no apparent distress, Oriented x3 HEENT: Atraumatic, PERRLA, EOMI Neck: Supple, JVD not distended Respiratory: Clear to auscultation bilaterally, Normal air movement Cardiovascular: Regular rate/rhythm, Normal S1 S2 Gastrointestinal: Normal bowel sounds, No tenderness Musculoskeletal: No tenderness Integumentary: No rashes Neurological: Normal speech, Normal tone, Normal affect Lymphatics: No axilla or inguinal lymphadenopathy Assessment And Plan - Plan - Problems (Diagnosis) (1) Abdominal mass (2) Metastatic disease (3) Hypertensive emergency (4) Elevated troponin 1. strict blood pressure control 2. Pain management - Patient on tramadol, [place] and morphine. None of this has been helping her pain, per patient. She remains to be in no distress but continues to complain of pain. Morphine and [place] seems to make the patient very confused and sleepy. Fentanyl patch added, seems to palpation. Morphine discontinued as this makes patient more confused and sleepy. 3. Gentle hydration 4. Discuss with family regarding hospice care. Discussed extensively with sister and mother at bedside yesterday. Family is not sure of how they want to proceed. They were unable to provide details of prior procedure/cancer. There on short of previously had cancer in liver, metastasis from elsewhere? There very indecisive and are unsure of what to do. Per sister, the son lives in [facility] and is supposed be leaving out of the country. Discussed with family that they will need to make a plan for moving forward as patient's pain control has been very difficult to manage. It seems that they are under the impression that the patient will return back to baseline with holistic medicine. We had a family meeting today regarding further care. Family is unsure whether to pursue treatment for the cancer at this time. Discussed that patient would need to have some sore rehab to be stronger even if they did choose to have chemotherapy/cancer treatment. Physical therapy consult ordered, rehab consult placed. We will try and avoid morphine as is next patient is sleepy and she is unable to work with physical therapy. 5. Per son, patient does not have a medical power of criminal defense attorney and is unsure of the code status at this time. He will discuss with his and let us know. Patient is not really able to tell us her wishes at this time. GI and DVT prophylaxis
[2018-04-25] MEDS ORDERED: POTASSIUM CL SA 10 MEQ TAB PO ONE (21:00)
[2018-04-26] MEDS: METOPROLOL TAR 25 MG TAB PO SCH ×2 (05:06→17:02)
[2018-04-26 06:17] LABS: Phosphorus 2.2 mg/dL (2.5-4.9)
[2018-04-26] MEDS: NA CHLORIDE 0.9% 1,000 ML IV SCH ×2 (07:36→21:00)
[2018-04-26] MEDS: TRAMADOL HCL 50 MG TAB PO PRN ×2 (07:37→21:13)
[2018-04-26] MEDS: ONDANSETRON 4 MG/2 ML VIAL IV PRN ×3 (07:38→21:13)
[2018-04-26] MEDS ORDERED: POTASSIUM PHOS IN 0.9 % NACL 15 MMOL/250 ML BAG IV ONE (08:00)
[2018-04-26] MEDS: hydroCHLOROthiazide 12.5 MG CAP PO SCH (08:49)
[2018-04-26] MEDS: AMLODIPINE 10 MG TAB PO SCH (08:49)
--- NOTE | 2018-04-26 12:52 | P.PN ---
Subjective Date of Service: 04/26/18 Chief Complaint: Hypertensive emergency Patient seen and examined at bedside. Friends at bedside. Chart reviewed and case discussed with nursing staff. Patient more awake this morning. Reports that she had a good night, pain is a little better than yesterday. HPI: patient with a history of uterine cancer requiring hysterectomy over 8 years ago and no chemo required at that time. 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 Son states that there was a rare type and she did not require chemo at that time either. Approximately 10 months ago she was diagnosed with another type of cancer (neuroendocrine tumor, well differentiated), At that time, she was told that it is a very slow-growing tumor though unoperable due to its location. There was a procedure planned (radiation) with oncologist that she is following up in [place]. She was started on injectable chemo once a month then was transitioned to oral chemo. According to the son, patient moved to [place], was unable to get her chemo prescription filled and for the past 1-2 months has not been getting any chemo medications. There was a repeat CT done in December 2017, which showed that there is no evidence of any growth of the tumor from prior. 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 Physical Examination - Vital Signs Temperature: 99 F Blood Pressure: 155/71 Pulse: 70 Respirations: 16 Pulse Ox (%): 95 Assessment And Plan - Plan - Problems (Diagnosis) (1) Abdominal mass (2) Metastatic disease (3) Hypertensive emergency (4) Elevated troponin (5) Debilitation (6) Malnutrition 1. strict blood pressure control 2. Pain management - Patient on tramadol, [place] and morphine. None of this has been helping her pain, per patient. She remains to be in no distress but continues to complain of pain. Morphine and [place] seems to make the patient very confused and sleepy. Fentanyl patch added, seems to help with pain. Morphine discontinued as this makes patient more confused and sleepy. 3. Gentle hydration 4. Discuss with family regarding hospice care. Discussed extensively with sister and mother at bedside yesterday. Family is not sure of how they want to proceed. They were unable to provide details of prior procedure/cancer. There on short of previously had cancer in liver, metastasis from elsewhere? There very indecisive and are unsure of what to do. Per sister, the son lives in [facility] and is supposed be leaving out of the country. Discussed with family that they will need to make a plan for moving forward as patient's pain control has been very difficult to manage. It seems that they are under the impression that the patient will return back to baseline with holistic medicine. We had a family meeting today regarding further care. Family is unsure whether to pursue treatment for the cancer at this time. Discussed that patient would need to have some sore rehab to be stronger even if they did choose to have chemotherapy/cancer treatment. Physical therapy consult ordered, rehab consult placed. We will try and avoid morphine as is next patient is sleepy and she is unable to work with physical therapy. 5. Per son, patient does not have a medical power of deputy county attorney and is unsure of the code status at this time. He will discuss with his and let us know. Patient is not really able to tell us her wishes at this time. GI and DVT prophylaxis
[2018-04-26] MEDS: ENOXAPARIN 40 MG/0.4 ML SQ SCH (17:02)
[2018-04-26] MEDS: KCL 20 MEQ/100 mL IVPB 20 MEQ/100 ML BAG IV SCH ×2 (20:35→22:00)
[2018-04-26] MEDS ORDERED: POTASSIUM CL 40 MEQ in NA CHLORIDE 0.9% 500 ML IV SCH (23:45)
[2018-04-27] MEDS: KCL 20 MEQ/100 mL IVPB 20 MEQ/100 ML BAG IV SCH ×2 (02:37→05:18)
[2018-04-27] MEDS ORDERED: KCL 20 MEQ/100 mL IVPB 20 MEQ/100 ML BAG IV ONE (02:44)
[2018-04-27] MEDS ORDERED: BISACODYL 10 MG RECTAL SUPP PR ONE (04:27)
[2018-04-27] MEDS ORDERED: LACTULOSE 20 GM/30 ML UCUP PO ONE (04:28)
[2018-04-27] MEDS: TRAMADOL HCL 50 MG TAB PO PRN ×2 (05:17→10:09)
[2018-04-27] MEDS: METOPROLOL TAR 25 MG TAB PO SCH ×2 (05:18→16:46)
[2018-04-27 06:31] LABS: BUN Blood Urea Nitrogen 8 mg/dL (7-18); Bicarbonate 32 mmol/L (21-32); Glucose Level 112 mg/dL (74-106); Phosphorus 2.3 mg/dL (2.5-4.9); Potassium 3.2 mmol/L (3.5-5.1); Sodium Level 137 mmol/L (136-145)
[2018-04-27] MEDS ORDERED: POTASS/SODIUM PHOSPHATE 1 PKT POWD.PACK PO SCH (08:00)
[2018-04-27] MEDS: FENTANYL 25 MCG/PATCH TD SCH ×2 (09:00→16:43)
[2018-04-27] MEDS: ENSURE HIGH PROTEIN 237 ML CAN PO SCH ×2 (09:00→14:00)
[2018-04-27 09:22] LABS: Absolute Lymphocytes (CBC) 1.4 K/uL (0.7-4.9); Absolute Monocytes 0.8 K/uL (0.1-1.3); Absolute Neutrophil 3.9 K/uL (1.8-8.0); Basophils % 0.4 % (0-1.3); Hematocrit 37.5 % (36.0-45.0); Lymphocytes % 21.6 % (15.3-44.8); MPV 7.6 fL (7.6-11.3); RBC Red Blood Cell Count 4.79 M/uL (3.86-4.86)
[2018-04-27] MEDS: hydroCHLOROthiazide 12.5 MG CAP PO SCH (09:31)
[2018-04-27] MEDS: AMLODIPINE 10 MG TAB PO SCH (09:31)
[2018-04-27] MEDS: ONDANSETRON 4 MG/2 ML VIAL IV PRN (10:10)
[2018-04-27] MEDS: NA CHLORIDE 0.9% 1,000 ML IV SCH (10:20)
--- NOTE | 2018-04-27 16:39 | P.DS ---
Admission Date: 04/21/18 Discharge Date: 04/27/18 Primary Care Provider: [place] Disposition: ROUTINE DISCHARGE Discharge Condition: GOOD Reason for Admission: Hypertensive emergency Consultations: none Procedures: CT scan: COMPARISON: None. TECHNIQUE: Dynamically enhanced 3 mm thick images of the chest were obtained during administration of approximately 150mL Isovue 370 IV contrast. Coronal and oblique MIP reconstruction images were generated and reviewed. Exam utilizes a protocol to evaluate the pulmonary arterial tree. All CT scans are performed using dose optimization technique as appropriate and may include automated exposure control or mA/KV adjustment according to patient size. FINDINGS: No pulmonary emboli are identified. The aorta as imaged shows no acute or suspicious finding. Trace amount of pericardial effusion seen. No infiltrate or mass in the lung parenchyma. No pleural effusion or pleural thickening. No mediastinal or hilar suspicious masses. No chest wall masses or abnormal axillary lymphadenopathy. IMPRESSION: No pulmonary emboli identified. No other significant or suspicious findings. CT scan: COMPARISON: None. TECHNIQUE: Axial [address] imaging of the abdomen and pelvis was performed without IV contrast. No IV contrast was given because of allergy, abnormal renal function, patient refusal or physician request. No oral contrast administered. All CT scans are performed using dose optimization technique as appropriate and may include automated exposure control or mA/KV adjustment according to patient size. FINDINGS: No suspicious findings in the lung bases. No pericardial thickening or effusion. In the midline and right side upper abdomen there is an 8 x 7 x 7 centimeter lobulated soft tissue mass. Superior margin abuts the left lobe of the liver. In the midportion the mass displaces the pancreas anteriorly. Posterior margin of the mass abuts the aorta and IVC. Surgical clips are seen along the superior margin of the mass. Within the liver parenchyma no clearly defined mass on noncontrast imaging. Pneumobilia is present. No gallbladder is identifiable. No focal splenic abnormality. The head and adjacent body of the pancreas are indistinguishable from the mass due to the isodensity of the 2 structures. No hydronephrosis or suspicious renal mass. Patient has a large 7 centimeter lower pole right renal cyst. Mostly contracted urinary bladder shows no suspicious finding. Uterus is absent. Ovaries are absent or atrophic. No adnexal mass. No significant adrenal finding. Isodense renal masses and pyelonephritis cannot be excluded in the absence of IV contrast. No acute gastric finding. Stomach assessment is limited in the absence of oral and IV contrast. No dilated large or small bowel loops. There is a large stool volume throughout the colon. A primary or active colon process not suspected. No free air, free fluid or inflammatory stranding. No omental thickening. No hernia identified. Patient has small periaortic/ pericaval lymph nodes in the upper abdomen. Disc and bony degenerative changes are present. IMPRESSION: No bowel obstruction, free air or surgically emergent finding. There is a large 8 centimeter solid mass of the midline and right upper abdomen with adjacent lymphadenopathy. Available history indicates liver cancer and uterine cancer. No prior imaging available to determine if this mass is stable, enlarging or improving. Large stool volume in the colon. No acute GI process. Large 7 centimeter lower pole right renal cyst. Assessment is limited in the absence of oral and IV contrast. Full assessment is limited is the absence of IV contrast. Medical problem list: HTN urgency with history of HTN Moderate malnutrition History of uterine cancer with large 8 cm solid mass lymphadenopathy likely related to neuroendocrine mass to the abdomen Chronic pain Brief History of Present Illness: 73-year-old female presented emergency room with elevated blood pressure. 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 Patient also had dehydration with malnutrition. Patient was admitted for treatment. Hospital Course: Patient presented with elevated blood pressure. Patient with hypertensive urgency. Patient was treated. Blood pressure now better controlled. At discharge patient will continue with Norvasc 10 mg daily, hydrochlorothiazide 12.5 mg daily and metoprolol 50 mg 1 pill twice daily. Recommendation is to maintain blood pressures less 150/80. Further adjustment can be done by her PCP. Patient plans to move to [facility] to continue her care. Patient with uterine cancer with 8 cm mass to the abdomen secondary to neuroendocrine cancer/disorder. Patient seen by Oncology in the past. Patient plans to follow up with Oncology in [facility]. Most of her care has been in [facility]. Recommend to follow up with Oncology in [facility] to continue her care. Patient with malnutrition. Her condition improved with IV hydration. Patient will continue with Ensure supplementation. At discharge patient was moving appropriately. Patient back to baseline. Plan of care discussed with patient and family. Patient is originally from [place]. She has moved to the area but her plan is to move to [facility] to continue her care. Her son plans to take her there. Her sister lives there now. Patient with chronic pain likely from cancer. Patient may continue with fentanyl patch that was initiated in the hospital. Recommend for the patient to see Oncology or pain management to continue her care with pain medication. Patient will be provided tramadol 50 mg 1 pill 3 times a day as needed for pain. A limited supply will be provided. Patient will need to follow up with pain management or oncology to refill fentanyl patch. Vital Signs/Physical Exam: Temp Pulse Resp BP Pulse Ox 97 F 67 18 145/78 H 95 04/27/18 12:00 04/27/18 12:00 04/27/18 12:00 04/27/18 12:00 04/27/18 12:00 General: Alert, In no apparent distress, Oriented x3, Cooperative HEENT: Atraumatic Neck: Supple Respiratory: Clear to auscultation bilaterally, Normal air movement Cardiovascular: Normal pulses, Regular rate/rhythm Gastrointestinal: Normal bowel sounds, Soft and benign, Non-distended, No tenderness, No masses, No rebound, No guarding Musculoskeletal: No erythema, No tenderness, No warmth Integumentary: No tenderness/swelling, No erythema, No warmth, No cyanosis Neurological: Normal speech, Normal strength at 5/5 x4 extr, Normal tone, Normal affect Laboratory Data at Discharge: WBC 6.3 K/uL (4.3-10.9) D 04/27/18 09:02 Hgb 12.8 g/dL (12.0-15.0) D 04/27/18 09:02 Hct 37.5 % (36.0-45.0) D 04/27/18 09:02 Plt Count 205 K/uL (152-406) D 04/27/18 09:02 PT 12.7 SECONDS (9.5-12.5) H 04/21/18 14:10 INR 1.08 04/21/18 14:10 Sodium 137 mmol/L (136-145) 04/27/18 05:31 Potassium 3.5 mmol/L (3.5-5.1) 04/27/18 09:02 BUN 8 mg/dL (7-18) 04/27/18 05:31 Creatinine 0.63 mg/dL (0.55-1.3) 04/27/18 05:31 Glucose 112 mg/dL (74-106) H 04/27/18 05:31 Phosphorus 2.3 mg/dL (2.5-4.9) L 04/27/18 05:31 Magnesium 2.0 mg/dL (1.8-2.4) 04/26/18 05:20 Total Bilirubin 0.6 mg/dL (0.2-1.0) 04/22/18 03:53 AST 15 U/L (15-37) 04/22/18 03:53 ALT 15 U/L (12-78) 04/22/18 03:53 Alkaline Phosphatase 117 U/L (45-117) 04/22/18 03:53 Troponin I 0.10 ng/mL (0.0-0.045) H 04/22/18 11:12 Lipase 95 U/L (73-393) 04/21/18 14:10 Home Medications: Amlodipine [Norvasc*] 10 mg PO DAILY #30 tab 04/27/18 Metoprolol Tartrate 50 mg PO BID #60 tablet 04/27/18 Tramadol HCl [Ultram] 50 mg PO TID PRN #20 tablet 04/27/18 hydroCHLOROthiazide [Hydrochlorothiazide*] 12.5 mg PO DAILY #30 cap 04/27/18 New Medications: Amlodipine [Norvasc*] 10 mg PO DAILY #30 tab hydroCHLOROthiazide [Hydrochlorothiazide*] 12.5 mg PO DAILY #30 cap Metoprolol Tartrate 50 mg PO BID #60 tablet Tramadol HCl [Ultram] 50 mg PO TID PRN #20 tablet PRN Reason: Pain Scale 2-4 (Mild) Patient Discharge Instructions: 1. Patient presented with elevated blood pressure. Patient with hypertensive urgency. Patient was treated. Blood pressure now better controlled. At discharge patient will continue with Norvasc 10 mg daily, hydrochlorothiazide 12.5 mg daily and metoprolol 50 mg 1 pill twice daily. Recommendation is to maintain blood pressures less 150/80. Further adjustment can be done by her PCP. Patient plans to move to [facility] to continue her care. 2. Patient with uterine cancer with 8 cm mass to the abdomen secondary to neuroendocrine cancer/disorder. Patient seen by Oncology in the past. Patient plans to follow up with Oncology in [facility]. Most of her care has been in [facility]. Recommend to follow up with Oncology in [facility] to continue her care. 3. Patient with malnutrition. Her condition improved with IV hydration. Patient will continue with Ensure supplementation. At discharge patient was moving appropriately. Patient back to baseline. Plan of care discussed with patient and family. Patient is originally from [place]. She has moved to the area but her plan is to move to [facility] to continue her care. Her son plans to take her there. Her sister lives there now. 4. Patient with chronic pain likely from cancer. Patient may continue with fentanyl patch that was initiated in the hospital. Recommend for the patient to see Oncology or pain management to continue her care with pain medication. Patient will be provided tramadol 50 mg 1 pill 3 times a day as needed for pain. A limited supply will be provided. Patient will need to follow up with pain management or oncology to refill fentanyl patch. Diet: AHA Activity: Fall precautions Time spent managing pt's care (in minutes): 55
[2018-04-27] MEDS: ENOXAPARIN 40 MG/0.4 ML SQ SCH (16:46)
[2018-04-27] MEDS ORDERED: FENTANYL 25 MCG/PATCH TD SCH (21:00)
== END 2018-04-27 17:11 | disposition home or self-care (01) | DRG 305 ==
LOC: ER 12:40 → ERHOLD 16:14 → 4TH 17:28
PROVIDERS: ADMIT Family Medicine; ATTEND Family Medicine
DX: I16.0 Hypertensive urgency (principal); E44.0 Moderate protein-calorie malnutrition; C7B.8 Other secondary neuroendocrine tumors; C55 Malignant neoplasm of uterus, part unspecified; G89.3 Neoplasm related pain (acute) (chronic)
CPT/HCPCS: 36415; 71045; 71275; 74176; 80048; 80053; 80076; 81003; 81015; 82550; 82553; 83690; 83735; 83880; 84100; 84132; 84484; 85025; 85610; 93005; 94760; 96361; 96372; 96374; 96375; 97112; 97116; 97161; 99285; J0360; J1650; J2405; J7030; Q9967